=== PATIENT | female | born 1945 | race Caucasian/White ===

== ENCOUNTER 2025-03-18 14:10 | Outpatient (REF) | payer OTHER, SELFPAY ==
--- OUTSIDE RECORDS SUMMARY | 2025-03-18 14:16 | XMS_ITS | Encounter Summary ---
Author Organization [facility] Address [address] [place] [address] Care Team Providers Care Pumper [employer]ery Name Role Phone Mallika Massey DO Primary Care Provider Christina Trimble DPM Unavailable [phone] Christiano Wade DO Unavailable [phone] Mallika Massey DO Unavailable [phone] Reason for Visit * Reason Comments Med Refill Encounter Details Date Type Department Care Team (Late st Contact Info) Description 03/15/2025 Refill [facility] [address] [place] [address] Mallika Massey, DO [address] [place] [address] Thalassemia, unspecified type Social History Tobacco Use Types Packs/Day Years Used Date Smoking Tobacco: Never Smokeless Tobacco: Never Alcohol Use Standard Drinks/Week Comments Not Currently 0 (1 standard drink = 0.6 oz pur e alcohol) Pt does not drink alcohol AUDIT-C Answer Date Recorded Frequency of Alcohol Consumption Not on file 10/26/2023 Q2: How many drinks containi ng alcohol do you have on a typical day when you are drinking? Patient does not drink Frequency of Binge Drinking Not on file 10/17 PHQ-2 Answer Date Recorded Patient Health Questionnaire-2 Score 0 03/15/2024 Comments No Sex and Gender Information Value Date Recorded Sex Assigned at Not on file Legal Sex Female 6:53 PM EDT Gender Identity Not on file Sexual Orientation Not on file documented as of this encounter Miscellaneous Notes * Telephone Encounter - Yonatan Coelho MA - 03/15/2025 2:11 PM EDT Rx sent documented in this encounter Plan of Treatment Upcoming Encounters Date Type Department Care Team (Late st Contact Info) Description 03/21/2025 1:00 PM EDT Office Visit [facility] [address] [place] [address] Mallika Massey DO [address] [place] [address] documented as of this encounter Visit Diagnoses Diagnosis Thalassemia, unspecified type documented in this encounter Care Teams Pumper Brewery Relationship Specialty Start Date End Date Mallika Massey DO [address] [place] [address] PCP - General Internal Medicine 10/28/23 Mallika Massey DO [address] [place] [address] PCP - Devoted 01/15/25 Christina Trimble DPM [address] [place] [address] Consulting Physician Podiatry 10/28/23 Christiano Wade DO [address] [place] [address] Consulting Physician General Surgery 04/08/24 Eleanor Galarza MD Consulting Physician Ophthalmology 02/20/24 documented as of this encounter
--- OUTSIDE RECORDS SUMMARY | 2025-03-18 14:16 | XMS_ITS | Encounter Summary ---
Author Organization [facility] Address [address] [place] [address] Care Team Providers Care Solar Designer Name Role Phone Mallika Massey DO Primary Care Provider Christina Trimble DPM Unavailable [phone] Christiano Wade DO Unavailable [phone] Mallika Massey DO Unavailable [phone] Encounter Details Date Type Department Care Team (Late st Contact Info) Description 03/04/2025 Patient Outreach [facility] [address] [place] [id number] Katrina Ellis MA Social History Tobacco Use Types Packs/Day Years [...] on file documented as of this encounter Progress Notes * Katrina Ellis MA - 03/04/2025 10:04 AM EDT Chart reviewed. Called and spoke to АННА horton, who states overall patient is doing well. She reports no leg pain or swelling. Doing okay on xarelto and denies any bruising or bleeding. Denies further falls and is using walker for assistance. HH PT/PT and nursing is coming in once weekly. Admits to eating and staying hydrated. Shanae does note that pt sits inside watching TV in the dark all day and she has a hard time getting her out of the house. Shanae sets up her weekly medications and patient taking as prescribed. Denies needs or concerns today and will touch base next week for / documented in this encounter Plan of Treatment Upcoming Encounters Date Type Department Care Team (Late st Contact Info) Description 03/21/2025 1:00 PM EDT Office Visit [facility] [address] [place] [address] Mallika Massey DO [address] [place] [address] documented as of this encounter Visit Diagnoses Diagnosis Acute deep vein thrombosis (DVT) of right lower extremity, unspecified vein ([facility]/HCC)- Primary Fall, initial encounter documented in this encounter Care Teams Solar Designer Relationship Specialty Start Date End Date Mallika Massey DO [address] [place] [address] PCP - General Internal Medicine 10/28/23 Mallika Massey DO [address] [place] [address] PCP - Devoted 01/15/25 Christina Trimble DPM [address] [place] [address] Consulting Physician Podiatry 10/28/23 Christiano Wade DO [address] [place], [place] [id number] Consulting Physician General Surgery 04/08/24 Eleanor Galarza MD Consulting Physician Ophthalmology 02/20/24 documented as of this encounter
--- OUTSIDE RECORDS SUMMARY | 2025-03-18 14:16 | XMS_ITS | Clinical Summary ---
Author Organization [facility] Address [address] [place] [address] Care Team Providers Care Research [employer] Insights Executive Name Role Phone Presley Wu DO Primary Care Provider [phone] Allergies Active Allergy Reactions Criticality Noted Date Comments Morphine Hives 08/03/2022 Medications levothyroxine (SYNTHROID) 175 MCG tabletIndications: Postsurgical hypothyroidism Take 1 tablet by mouth Daily 90 tablet 1 2 Active simvastatin (ZOCOR) 40 MG tabletIndications: Mixed hyperlipidemia Take 1 tablet by mouth nightly 90 tablet 1 2 Active GAVILYTE-G 236 g solution TAKE 4000 ML BY MOUTH A ONE TIME DOSE 3 Active folic acid (FOLVITE) 1 MG tabletIndications: Type 2 diabetes mellitus without complication, without long-term current use of insulin (HCC) Take 1 tablet by mouth once daily 90 tablet 1 3 Active metFORMIN (GLUCOPHAGE) 1000 MG tabletIndications: Type 2 diabetes mellitus without complication, without long-term current use of insulin (HCC) TAKE 1 TABLET BY MOUTH TWICE DAILY WITH MEALS 180 tablet 1 3 Active metoprolol succinate (TOPROL XL) 25 MG extended release tabletIndications: Essential hypertension Take 1 tablet by mouth once daily 90 tablet 1 3 Active triamcinolone (KENALOG) 0.1 % creamIndications:P ruritic rash determined by examination,Irrita nt contact dermatitis, unspecified trigger Apply topically 2 times daily. 45 g 1 3 Active acetaminophen (TYLENOL) 500 MG tabletIndications: Chronic maxillary sinusitis Take 1-2 tablets PO QID PRN for pain 360 tablet 1 3 Active dapagliflozin (FARXIGA) 10 MG tabletIndications: Type 2 diabetes mellitus without complication, without long-term current use of insulin (HCC) Take 1 tablet by mouth every morning 30 tablet 5 3 Active Active Problems Problem Noted Date Diagnosed Date Essential hypertension 09/07/2022 Type 2 diabetes mellitus wit hout complication, without long-term current use of insulin 06/01/2022 Mixed hyperlipidemia 06/01/2022 Postsurgical hypothyroidism 06/01/2022 Social History Tobacco Use Types Packs/Day Years Used Date Smoking Tobacco: Never Smokeless Tobacco: Never Alcohol Use Standard Drinks/Week Comments Never 0 (1 standard drink = 0.6 oz pur e alcohol) AUDIT-C Answer Date Recorded Q1: How often do you have a drink containing alcohol? Never 08/03/2022 Q2: How many drinks containi ng alcohol do you have on a typical day when you are drinking? Patient does not drink Q3: How often do you have si x or more drinks on one occasion? Never 08/03/2022 Overall Financial Resource Strain (CARDIA) Answe r Date Recorded How hard is it for you to pa y for the very basics like food, housing, medical care, and heating? Not hard at all 04/29/2023 PHQ-2 Answer Date Recorded PHQ-9 Total Score 0 04/29/2023 Exercise Vital Sign Answer Date Recorde d On average, how many days pe r week do you engage in moderate to strenuous exercise (like a brisk walk)? 0 days 08/03/2022 On average, how many minutes do you engage in exercise at this level? 0 min 08/03/2022 Hunger Vital Sign Answer Date Recorded Within the past 12 months, y ou worried that your food would run out before you got the money to buy more. Never true 04/29/20 23 Within the past 12 months, t he food you bought just didn't last and you didn't have money to get more. Never true 04/29/2023 PRAPARE - Transportation Answer Date Re corded Lack of Transportation (Medical) Not on file 04/29/2023 In the past 12 months, has l ack of transportation kept you from meetings, work, or from getting things needed for daily living? No 04/29/2023 Housing Stability Vital Sign Answer Christo e Recorded Unable to Pay for Housing in the Last Year Not o n file 04/29/2023 Number of Places Lived in the Last Year Not on f ile 04/29/2023 In the last 12 months, was t here a time when you did not have a steady place to sleep or slept in a long term (including now)? No 04/29/2023 Food Insecurity Answer Date Recorded Within the past 12 months, y ou worried that your food would run out before you got the money to buy more. 1 04/29/2023 Within the past 12 months, t he food you bought just didn't last and you didn't have money to get more. 1 04/29/2023 Interpersonal Safety Domain Source: IP Abuse Scr eening Answer Date Recorded Read-Only, Retired: Physical Abuse Denies 03/17/2023 Read-Only, Retired: Verbal Abuse Denies 03/17/2023 Read-Only, Retired: Emotional abuse Denies 03/17/2023 Read-Only, Retired: Financial Abuse Denies 03/17/2023 Read-Only, Retired: Sexual abuse Denies 03/17/2023 Comments No Sex and Gender Information Value Date Recorded Sex Assigned at Not on file Legal Sex Female 10:53 AM EDT Gender Identity Not on file Sexual Orientation Not on file Last Filed Vital Signs Vital Sign Reading Time Taken Comments Blood Pressure 130/88 04/29/2023 11:11 AM EDT Pulse 100 04/29/2023 11:11 AM EDT Temperature 35.9 C (96.7 F) 03/17/2023 9:00 AM EDT Respiratory Rate 15 03/17/2023 9:45 AM EDT Oxygen Saturation 99% 04/29/2023 11:11 AM EDT Inhaled Oxygen Concentration - - Weight 118.8 kg (262 lb) 04/29/2023 11:11 AM EDT Height 157.5 cm (5' 2 ) 03/17/2023 7:06 AM EDT Body Mass Index 47.92 03/17/2023 7:06 AM EDT Plan of Treatment Health Maintenance Due Date Last Done Comments DTaP/Tdap/Td vaccine (1 - Tdap) 1966 Pneumococcal 50+ years Vaccine (1 of 2 - PCV) 1966 Shingles vaccine (1 of 2) 1997 DEXA (modify frequency per FRAX score) 2002 Respiratory Syncytial Virus (RSV) or age 60 yrs+ (1 - 1-dose 75+ series) 2022 GFR test (Diabetes, CKD 3-4, OR last GFR 15-59) 06/01/2023 06/01/2022 Lipids 06/01/2023 06/01/2022 Diabetic Alb to Cr ratio (uACR) test 06/08/2023 06/08/2022 Depression Screen 04/29/2024 04/29/2023 COVID-19 Vaccine ( - 2023-2 5 season) 2024 Annual Wellness Visit (Medicare Advantage) 10/17/2024 08/03/2022 Flu vaccine (Season Ended) 2025 Diabetic foot exam Discontinued 06/08/2022 Colonoscopy Discontinued 03/17/2023 Colorectal Cancer Screen Discontinued A1C test (Diabetic or Prediabetic) Discontinued 04/29/2023, 09/07/2022, 06/01/2022 FIT/FOBT: Average risk Discontinued Fecal-DNA (Cologuard): Average risk Discontinued Hepatitis A vaccine Aged Out No longe r eligible based on patient's age to complete this topic Hepatitis B vaccine Aged Out No longe r eligible based on patient's age to complete this topic Hepatitis C screen Discontinued Hib vaccine Aged Out No longer eligi ble based on patient's age to complete this topic Meningococcal (ACWY) vaccine Aged Out No longer eligible based on patient's age to complete this topic Meningococcal B vaccine Aged Out No l onger eligible based on patient's age to complete this topic Polio vaccine Aged Out No longer elig ible based on patient's age to complete this topic Sigmoidoscopy/CT colonography Discontinued Medical Devices Implanted Type Area Bottom Loader Device Identifier Shelf Expiration Date Model / Serial / Lot Knee Knee Bilateral: Knee Procedures Procedure Name Priority Date/Time Associated Diagnosis Comments POCT GLYCOSYLATED HEMOGLOBIN (HGB A1C) Routine 04/29/2023 11:10 AM EDT Type 2 diabetes mellitus without complication, without long-term current use of insulin (HCC) POC ALBUMIN/CREATININE RATIO Routine 06/08/2022 11:03 AM EDT Type 2 diabetes mellitus without complication, without long-term current use of insulin (HCC) COMPREHENSIVE METABOLIC PANEL Routine 06/01/2022 11:22 AM EDT Type 2 diabetes mellitus without complication, without long-term current use of insulin (HCC) LIPID PANEL Routine 06/01/2022 11:22 AM EDT Type 2 diabetes mellitus without complication, without long-term current use of insulin (HCC) from Last 3 Months or Most Recently Relevant to Health Maintenance Results * POCT glycosylated hemoglobin (Hb A1C) (04/29/2023 11:10 AM EDT) Hemoglobin A1C 8.1 % BLOOD SPECIMEN / Unknown 04/29/2023 11:10 AM EDT Presley Wu DO POINT OF CARE TEST ORDERABL ES Final Result * POCT microalbumin (06/08/2022 11:03 AM EDT) Albumin Urine 30 Creatinine Ur POCT 300 Albumin/Creatini ne Ratio 0.1 Urine 06/08/2022 11:0 3 AM EDT Presley Wu DO POINT OF CARE TEST ORDERABL ES Final Result * (ABNORMAL) Lipid Panel (06/01/2022 11:22 AM EDT) Cholesterol 282(H) <200 mg/dL 06/01/2022 11:22 AM EDT [facility] Comment: Cholesterol Guidelines: <200 Desirable 200-240 Borderline >240 Undesirable HDL 48 >40 mg/dL 06/01/2022 11:22 AM EDT [employer] Comment: HDL Guidelines: <40 Undesirable 40-59 Borderline >59 Desirable LDL Cholesterol 154(H) 0 - 130 mg/dL 06/01/2022 11:22 AM EDT [employer] Comment: LDL Guidelines: <100 Desirable 100-129 Near to/above Desirable 130-159 Borderline >159 Undesirable Direct (measured) LDL and calculated LDL are not interchangeable tests. Chol/HDL Ratio 5.9(H) <5 06/01/2022 11:22 AM EDT [employer] Comment: Triglycerides 400(H) <150 mg/dL 06/01/2022 11:22 AM EDT [employer] Comment: Triglyceride Guidelines: <150 Desirable 150-199 Borderline 200-499 High >499 Very high Based on AHA Guidelines for fasting triglyceride, July 2012. BLOOD SPECIMEN / Unknown 06/01/2022 11:22 AM EDT 06/01/2022 11:23 AM EDT Presley Wu DO CHEMISTRY ORDERABLES Final Result [facility] [address] [place] [address], [facility] [phone] [facility] [address] [id number], [facility] [phone] * (ABNORMAL) Comprehensive Metabolic Panel (06/01/2022 11:22 AM EDT) Glucose 138(H) 70 - 99 mg/dL 06/01/2022 11:22 AM EDT [facility] BUN 10 8 - 23 mg/dL 06/01/2022 11:22 AM EDT [facility] Creatinine 0.67 0.50 - 0.90 mg/dL 06/01/2022 11:22 AM EDT [facility] BUN/Creatinine Ratio 15 9 - 20 06/01/2022 11:22 AM EDT [facility] Calcium 9.4 8.6 - 10.4 mg/dL 06/01/2022 11:22 AM EDT [facility] Sodium 136 135 - 144 mmol/L 06/01/2022 11:22 AM EDT [facility] Potassium 4.6 3.7 - 5.3 mmol/L 06/01/2022 11:22 AM EDT [facility] Chloride 97(L) 98 - 107 mmol/L 06/01/2022 11:22 AM EDT [facility] [facility] CO2 29 20 - 31 mmol/L 06/01/2022 11:22 AM EDT [facility] Anion Gap 10 9 - 17 mmol/L 06/01/2022 11:22 AM EDT [facility] Alkaline Phosphatase 70 35 - 104 U/L 06/01/2022 11:22 AM EDT [facility] ALT 21 5 - 33 U/L 06/01/2022 11:22 AM EDT [facility] AST 23 <32 U/L 06/01/2022 11:22 AM EDT [facility] Total Bilirubin 0.51 0.30 - 1.20 mg/dL 06/01/2022 11:22 AM EDT [facility] Total Protein 7.4 6.4 - 8.3 g/dL 06/01[facility]2022 [facility] Albumin 4.3 3.5 - 5.2 g/dL 06/01/2022 11:22 AM EDT [facility] [facility] GFR Non- >60 >60 mL/min 06/01/2022 11:22 AM EDT [facility] GFR >60 >60 mL/min 06/01/2022 11:22 AM T [facility] GFR Comment 06/01/2022 11:22 AM [facility] Comment: Average GFR for 70 or more years old: 75 mL/min/1.73sq m Chronic Kidney Disease: <60 mL/min/1.73sq m Kidney failure: <15 mL/min/1.73sq m eGFR calculated using average adult body mass. Additional eGFR calculator available at: http://www.[employer].com/multiple_crcl_2012.htm BLOOD SPECIMEN / Unknown 06/01/2022 11:22 AM EDT 06/01/2022 11:23 AM EDT Presley Wu DO CHEMISTRY ORDERABLES Final Result [facility] [facility] [address] [place] [address], [facility] [phone] from Last 3 Months or Most Recently Relevant to Health Maintenance Insurance [facility] MEDICARE Advance Directives Healthcare Agents on File Name Relationship Healthcare Agent Relationshi p Communication Whitney Lui Other Primary Decision Maker Care Teams [employer] Executive Relationship Specialty Start Date End Date Presley Wu DO [address] [place] [id number] PCP - General Family Medicine 06/01/22
--- OUTSIDE RECORDS SUMMARY | 2025-03-18 14:16 | XMS_ITS | Encounter Summary ---
Author Organization [facility] Address [address] [place] [address] Care Team Providers Care Salvager Name Role Phone Mallika Massey DO Unavailable [phone] Mallika Massey DO Primary Care Provider Christina Trimble DPM Unavailable [phone] Christiano Wade DO Unavailable [phone] Mallika Massey DO Unavailable [phone] Encounter Details Date Type Department Care Team (Late st Contact Info) Description 03/15/2024 Orders Only [facility] [address] [place] [id number] A, Unknown Practice [address] [place] [id number] Social History Tobacco Use Types Packs/Day Years [...] on file documented as of this encounter Functional Status * Over the past 2 weeks, how often have you been bothered by any of the following problems? Question Answer Date of Assessment Author Little interest or pleasure in doing things Not at all 03/15/2024 9:00 AM EDT [facility] Mc[facility] N Feeling down, depressed, or hopeless Not at all 03/15/2024 9:00 AM EDT [facility] Mcnamara [facility] N Patient Health Questionnaire -2 Score 0 03/15/2024 9:00 AM EDT Sydnee Mcnamara [facility] N documented as of this encounter Plan of Treatment Upcoming Encounters Date Type Department Care Team (Late st Contact Info) Description 03/21/2025 1:00 PM EDT Office Visit [facility] [address] [place] [address] Mallika Massey DO [address] [place] [address] documented as of this encounter Procedures Procedure Name Priority Date/Time Associated Diagnosis Comments DIABETES EYE EXAM Routine 03/15/2024 2:08 PM EDT documented in this encounter Results * Diabetes Eye Exam (03/15/2024 2:08 PM EDT) us Unknown Practice [facility] MAINTENANCE Final Resu lt documented in this encounter Visit Diagnoses Not on filedocumented in this encounter Care Teams Salvager Relationship Specialty Start Date End Date Mallika Massey DO [address] [place] [address] PCP - Devoted 10/17/23 10/16/24 Mallika Massey DO [address] [place] [address] PCP - General Internal Medicine 10/28/23 Mallika Massey DO [address] [place] [address] PCP - Devoted 01/15/25 Christina Trimble DPM [address] [facility] [address] [place] [address] Consulting Physician Podiatry 10/28/23 Christiano Wade DO [address] [place] [address] [address] [place] [address] Consulting Physician General Surgery 04/08/24 Eleanor Galarza MD Consulting Physician Ophthalmology 02/20/24 documented as of this encounter
--- OUTSIDE RECORDS SUMMARY | 2025-03-18 14:16 | XMS_ITS | Encounter Summary ---
Author Organization [facility] Address [address] [place] [address] Care Team Providers Care Critical Care Registered Nurse Name Role Phone Mallika Massey DO Unavailable [phone] Mallika Massey DO Primary Care Provider Christina Trimble DPM Unavailable [phone] Christiano Wade DO Unavailable [phone] Mallika Massey DO Unavailable [phone] Encounter Details Date Type Department Care Team (Late st Contact Info) Description 03/06/2024 External Result Encounter [facility] Unsolicited Christiano Wade, DO [address] [place] [address] Social History Tobacco Use Types Packs/Day Years [...] of Binge Drinking Not on file 10/17 Comments No Sex and Gender Information Value Date Recorded Sex Assigned at Not on file Legal Sex Female 6:53 PM EDT Gender Identity Not on file Sexual Orientation Not on file documented as of this encounter Plan of Treatment Upcoming Encounters Date Type Department Care Team (Late st Contact Info) Description 03/21/2025 1:00 PM EDT Office Visit [facility] [address] [place] [id number] Mallika Massey, [address] [place] [address] documented as of this encounter Procedures Procedure Name Priority Date/Time Associated Diagnosis Comments BI US GUIDED BREAST LOCALIZATION AND BIOPSY RIGHT 03/06/2024 1:43 PM EDT documented in this encounter Results * Right US-guided breast localization and biopsy (03/06/2024 1:43 PM EDT) Anatomical Region Laterality Modality Breast Right Ultrasound 03/06/2024 1:43 PM EDT Impressions 03/06/2024 1:50 PM EDT STATUS POST ULTRASOUND GUIDED VACUUM-ASSISTED CORE BIOPSIES OF THE RIGHT BREAST. RESULT CODE: NL Impression dictated by: Donald Washburn M.D.03/06/2024 1:47 PM Dictation Location: [facility] Transcribed By: [facility] 03/06/24 1347 Dictated By: Donald Washubrn II, MD 03/06/24 1343 Signed By: <Electronically signed by Donald Washburn II, MD in [place]> 03/06/24 1347 Narrative 03/06/2024 1:50 PM EDT [facility] Main [address] [address] Mammography Report Signed with Addenda Patient: Bessie Espinosa MR#: [id number] 36 : 1945 Acct:[id number] Age/Sex: 78 / F ADM Date: 03/06/24 Loc: [facility] Room: Type: [facility] Attending Dr: Christiano Wade DO Copies to: DO Mallika Leiva DO Ordering Provider: Christiano Wade DO Date of Service: 03/06/24 US/US breast ndl core biopsy RT: . ([id number]) MM/MM post biopsy RT w/CAD: RT BX WITH CLIP ADDENDUM 1 Final pathology: Invasive lobular carcinoma Estrogen receptor: Positive Progesterone receptor: Positive HER-2: Pending Recommendation: Surgical consultation is recommended. Impression dictated by: Donald Washburn M.D.03/09/2024 8:03 AM Dictation Location: [place] [address] Addendum Dictated By: Donald Washburn II, MD Addendum Signed By: <Electronically signed by Donald Washburn II, MD in [place]> 03/09/[address]802 Addendum Cosigned By: DD/ TD/TT: 03/09/24 ULTRASOUND GUIDED VACUUM-ASSISTED HOLOGIC ATEC SYSTEM CORE BIOPSIES OF THE RIGHT BREAST: CLINICAL DATA: Right breast mass PROCEDURE: The risks, benefits and alternatives to an ultrasound guided vacuum-assisted Hologic ATEC system core biopsy procedure were discussed with the patient and written informed consent was obtained. Ultrasonographic survey of the upper aspect of the right breast was performed by electro mechanical technologist as well as myself. There is a hypoechoic irregularly marginated mass with posterior acoustic shadowing at the 1:00 position 7 to 8 cm from the nipple similar to the prior exams. This appears to be 1 lesion in total previous reported as 2 adjacent lesions on outside ultrasound. The patient's overlying skin was anesthetized with 1% lidocaine. The deeper soft tissues up to and around the lesion were anesthetized with lidocaine mixed with epinephrine. Following this, multiple core biopsies of the right breast lesion at the 1:00 position were performed using a 12-gauge Sqoot vacuum-assisted core biopsy needle under ultrasound guidance. Multiple core biopsy specimens were obtained. A metallic post biopsy marker was then placed. Post procedure mammograms were performed. The patient tolerated the procedure well without immediate postprocedural complication. POSTPROCEDURE MAMMOGRAMS: Craniocaudal and mediolateral oblique views of the right breast were performed using low dose digital technique and compared to the previous ultrasound and mammograms dated 01/26/2024 and 02/28/2024. A small metallic marking clip is demonstrated within the upper aspect of the right breast where the ultrasound guided core biopsy was performed. MM/MM post biopsy RT w/CAD Procedure Note Radiology, Radiologist, - 03/09/2024 [facility] Main [place] [address] [place] [address] Mammography Report Signed with Addenda Patient: Bessie Espinosa KMR#: [id number] 36 : 1945cct:[id number] Age/Sex: 78 / FADM Date: 03/06/24 Loc: [facility] Room:Type: [facility] Attending Dr: Christiano Wade DO Copies to: DO Mallika Leiva DO Ordering Provider: Christiano Wade DO Date of Service: 03/06/24 US/US breast ndl core biopsy RT: . ([id number]) MM/MM post biopsy RT w/CAD: RT BX WITH CLIP ADDENDUM 1 Final pathology: Invasive lobular carcinoma Estrogen receptor: Positive Progesterone receptor: Positive HER-2: Pending Recommendation: Surgical consultation is recommended. Impression dictated by: Donald Washburn M.D.03/09/2024 8:03 AM Dictation Location: [place] [address] Addendum Dictated By: Donald Washburn II, MD Addendum Signed By: <Electronically signed by Donald Cannon II, MD in [place]> 03/09/24 08 Addendum Cosigned By: DD/ TD/TT: 03/09/24 ULTRASOUND GUIDED VACUUM-ASSISTED HOLOGIC ATEC SYSTEM CORE BIOPSIES OF THERIGHT BREAST: CLINICAL DATA: Right breast mass PROCEDURE: The risks, benefits and alternatives to an ultrasound guidedvacuum-assisted Hologic ATEC system core biopsy procedure were discussed with the patient and writteninformed consent was obtained. Ultrasonographic survey of the upper aspect of the right breast wasperformed by electro mechanical technologist as well as myself. There is a hypoechoic irregularlymarginated mass with posterior acoustic shadowing at the 1:00 position 7 to 8 cm from the nipple similarto the prior exams. This appears to be 1 lesion in total previous reported as 2 adjacent lesions onoutside ultrasound. The patient's overlying skin was anesthetized with 1% lidocaine. Thedeeper soft tissues up to and around the lesion were anesthetized with lidocaine mixed with epinephrine.Following this, multiple core biopsies of the right breast lesion at the 1:00 position wereperformed using a 12-gauge Sqoot vacuum-assisted core biopsy needle under ultrasound guidance. Multiplecore biopsy specimens were obtained. A metallic post biopsy marker was then placed. Post proceduremammograms were performed. The patient tolerated the procedure well without immediate postproceduralcomplication. POSTPROCEDURE MAMMOGRAMS: Craniocaudal and mediolateral oblique views ofthe right breast were performed using low dose digital technique and compared to the previousultrasound and mammograms dated 01/26/2024 and 02/28/2024. A small metallic marking clip isdemonstrated within the upper aspect of the right breast where the ultrasound guided core biopsy was performed. MM/MM post biopsy RT w/CAD IMPRESSION: STATUS POST ULTRASOUND GUIDED VACUUM-ASSISTED CORE BIOPSIES OF THE RIGHTBREAST. RESULT CODE: NL Impression dictated by: Donald Washburn M.D.03/06/2024 1:47 PM Dictation Location: [facility] Transcribed By: [facility] 03/06/24 1347 Dictated By: Donald Washburn II, MD 03/06/24 1343 Signed By: <Electronically signed by Donald Washburn II, MD inOV> 03/06/24 1347 us Christiano Wade DO IMG US PROCEDURES Edited Result - Final documented in this encounter Visit Diagnoses Not on filedocumented in this encounter Care Teams Critical Care Registered Nurse Relationship Specialty Start Date End Date Mallika Massey DO [address] [place] [address] PCP - [facility] 10/17/23 10/16/24 Mallika Massey DO [address] [place] [address] PCP - General Internal Medicine 10/28/23 Mallika Massey DO [address] [place] [address] PCP - [facility] 01/15/25 Christina Trimble DPM [address] [place] [address] Consulting Physician Podiatry 10/28/23 Christiano Wade DO [address] [place] [address] Consulting Physician General Surgery 04/08/24 Eleanor Galarza MD Consulting Physician Ophthalmology 02/20/24 documented as of this encounter
--- OUTSIDE RECORDS SUMMARY | 2025-03-18 14:16 | XMS_ITS | Clinical Summary ---
Author Organization [facility] Address [address] [place] [address] Care Team Providers Care Maintenance Job Titles Name Role Phone Mallika Massey DO Primary Care Provider Christina Trimble DPM Unavailable [phone] Christiano Wade DO Unavailable [phone] Mallika Massey DO Unavailable [phone] Allergies Active Allergy Reactions Criticality Noted Date Comments Metformin Diarrhea Medium 03/15/2024 Morphine Hives,Other,Rash Low 05/31/2018 Pt reports blotchy skin Other Reaction(s): Rash Medications acetaminophen (Tylenol) 500 MG tablet Take 1-2 tablets PO QID PRN for pain 04/29/20 23 Active metoprolol succinate XL (Toprol-XL) 25 MG 24 hr tabletIndication s:Essential hypertension (CMS/HCC) Take 1 tablet (25 mg) by mouth Daily 90 tablet 3 03/15/20 24 Active simvastatin (Zocor) 40 MG tabletIndication s:Hyperlipidemia , mixed (CMS/HCC) Take 1 tablet (40 mg) by mouth at bedtime 90 tablet 3 03/15/20 24 Active letrozole (Femara) 2.5 MG chemo tablet TAKE 1 TABLET BY MOUTH EVERY DAY STARTING AFTER RADIATION TREATMENT IS DONE 07/05/20 24 Active cholecalciferol (Vitamin D-3) 75 MCG (3000 UT) tablet Take 2,000 Units by mouth Daily Active Calcium Carb-Cholecalcif chilo (CALCIUM 1000 + D PO) Take 600 mg by mouth Daily Active empagliflozin (Jardiance) 10 MGIndications:Ty pe 2 diabetes mellitus with neurological manifestation (CMS/HCC) Take 1 tablet (10 mg) by mouth Daily 90 tablet 3 08/21/20 24 025 Active [facility] Vitamin B12 1000 MCG tablet Take 1,000 mcg by mouth Daily 02/23/20 25 Active levothyroxine (Synthroid, Levoxyl) 50 MCG tablet Take 50 mcg by mouth in the morning. Take before meals. 02/23/20 25 Active pantoprazole (ProtoNix) 40 MG EC tablet Take 40 mg by mouth in the morning. Take before meals. 02/23/20 25 Active Xarelto 20 MG tablet Take 20 mg by mouth in the evening. Take with meals 02/23/20 25 Active Ozempic, 0.25 or 0.5 MG/DOSE, 2 MG/3ML solution pen-injector Inject 0.25 mg as directed every 7 (seven) days 02/23/20 25 Active folic acid (Folvite) 1 MG tabletIndication s:Thalassemia, unspecified type TAKE 1 TABLET BY MOUTH EVERY DAY 90 tablet 3 03/15/20 25 Active folic acid (Folvite) 1 MG tabletIndication s:Thalassemia, unspecified type Take 1 tablet (1 mg) by mouth Daily 90 tablet 3 03/15/20 24 025 Discontinued ibuprofen 600 MG tablet TAKE 1 TABLET EVERY 4 TO 6 HOURS NEEDED FOR PAIN FOR 1 WEEK MAX 4 TABS/24HRS 04/10/20 24 025 Discontinued(O ther) Active Problems Problem Noted Date Diagnosed Date Acute deep vein thrombosis ( DVT) of tibial vein of right lower extremity 02/21/2025 Overview (02/25/2025): Admitted 02/21/2025 after a fall. Found to have DVT and started on Xarelto Malignant neoplasm of upper- inner quadrant of right breast in female, estrogen receptor positive 03/21/2024 Overview (08/21/2024): Malignant neoplasm of upper-inner quadrant of right breast in female, estrogen receptor positive She had lumpectomy with Dr Wade March 2024. 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 (Ie GLP1 or SGLT2) Due to preference for an oral option, I recommend starting Jardiance at this time. Asymptomatic varicose veins of both lower extrem ities 03/21/2024 Venous (peripheral) insufficiency 03/21/2024 Essential hypertension 10/28/2023 Overview (11/08/2023): Prescribed metoprolol XL Assessment & Plan (08/21/2024 3:32 PM EST): Her BP is doing fine on current rx. Based on review of patient's medications and current medical status; continuation of medications most appropriate. Compliance with medications and/or management recommendations encouraged. Will continue to monitor Assessment & Plan (04/08/2024 3:50 PM EDT): BP is doing fine on current rx. Based on review of patient's medications and current medical status; continuation of medications most appropriate. Compliance with medications and/or management recommendations encouraged. Monitor Assessment & Plan (11/08/2023 10:17 PM EST): -Reinforced importance of lifestyle modifications (healthy diet choices, regular exercise and weight management) for detention control of blood pressure. Limit salt. Follow the DASH diet. Advised of increased risk of complications ( for example: stroke, heart failure, heart attack, kidney damage or ) when BP not adequately controlled. BP goals reviewed and specific recommendations to achieve the goal/maintain goal BP discussed Thalassemia 10/28/2023 Overview (11/08/2023): She is taking folic acid Mixed hyperlipidemia 06/01/2022 Overview (04/08/2024): Prescribed simvastatin Assessment & Plan (08/21/2024 3:33 PM EST): Will plan to have labs prior to next visit (Reminder created). -Reinforced importance of dietary modification, regular cardiovascular activity and compliance with any prescribed medication for detention management/control of lipids. High cholesterol (especially LDL) is associated with an elevated risk of cardiovascular disease. This includes coronary artery disease. stroke and peripheral vascular disease. High cholesterol has also been linked to diabetes and high blood pressure risks. By appropriately treating LDL, these risks can be reduced. Assessment & Plan (04/08/2024 3:50 PM EDT): -Reinforced importance of dietary modification, regular cardiovascular activity and compliance with any prescribed medication for detention management/control of lipids. High cholesterol (especially LDL) is associated with an elevated risk of cardiovascular disease. This includes coronary artery disease. stroke and peripheral vascular disease. High cholesterol has also been linked to diabetes and high blood pressure risks. By appropriately treating LDL, these risks can be reduced. Assessment & Plan (11/08/2023 10:18 PM EST): Will get lipid panel; but based on dx of DM, she should be on statin therapy Postsurgical hypothyroidism 06/01/2022 Overview (02/25/2025): 08/2024: Not currently on rx 02/2025- Levothyroxine 50 mcg started during hospitalization (for a fall) Assessment & Plan (11/08/2023 10:19 PM EST): Will get TFTs to assess current status and determine if she needs to resume rx Class 3 obesity Assessment & Plan (08/21/2024 3:34 PM EST): -Obesity is a term that means you have a body mass index (BMI) of 30 or higher. Obesity increases your risk of many conditions. Of major concern is that your risk of heart disease is increased. Of particular concern is that a [place] Heart Study analysis concluded that, after other cardiovascular risk factors are controlled, obese individuals have double the risk of new onset heart failure compared with normal weight subjects The risks for hypertension, stroke, diabetes, some cancers (including colon, postmenopausal breast cancer, kidney and esophageal), gallbladder disease, osteoarthritis, gout and breathing problems, such as sleep apnea are increased. I recommend you work on increasing physical activity and diet modifications to achieve goal BMI (less than 30 and preferably less than 25) in order to reduce risk of obesity-related complications. Specifically advised that weight loss if going to start in the kitchen more so than at the gym . While not everyone who is obese will develop one of the above mentioned diseases, the RISK is increased. -Losing a small amount of weight can reduce your chances of developing heart disease or a stroke. Losing even more weight has been shown to lower the risk even more. Assessment & Plan (04/08/2024 3:54 PM EDT): -Obesity is a term that means you have a body mass index (BMI) of 30 or higher. Obesity increases your risk of many conditions. Of major concern is that your risk of heart disease is increased. Of particular concern is that a [place] Heart Study analysis concluded that, after other cardiovascular risk factors are controlled, obese individuals have double the risk of new onset heart failure compared with normal weight subjects The risks for hypertension, stroke, diabetes, some cancers (including colon, postmenopausal breast cancer, kidney and esophageal), gallbladder disease, osteoarthritis, gout and breathing problems, such as sleep apnea are increased. I recommend you work on increasing physical activity and diet modifications to achieve goal BMI (less than 30 and preferably less than 25) in order to reduce risk of obesity-related complications. Specifically advised that weight loss if going to start in the kitchen more so than at the gym . While not everyone who is obese will develop one of the above mentioned diseases, the RISK is increased. -Losing a small amount of weight can reduce your chances of developing heart disease or a stroke. Losing even more weight has been shown to lower the risk even more. Assessment & Plan (11/08/2023 10:19 PM EST): -Obesity is a term that means you have a body mass index (BMI) of 30 or higher. Obesity increases your risk of many conditions. Of major concern is that your risk of heart disease is increased. Of particular concern is that a [place] Heart Study analysis concluded that, after other cardiovascular risk factors are controlled, obese individuals have double the risk of new onset heart failure compared with normal weight subjects The risks for hypertension, stroke, diabetes, some cancers (including colon, postmenopausal breast cancer, kidney and esophageal), gallbladder disease, osteoarthritis, gout and breathing problems, such as sleep apnea are increased. I recommend you work on increasing physical activity and diet modifications to achieve goal BMI (less than 30 and preferably less than 25) in order to reduce risk of obesity-related complications. Specifically advised that weight loss if going to start in the kitchen more so than at the gym . While not everyone who is obese will develop one of the above mentioned diseases, the RISK is increased. -Losing a small amount of weight can reduce your chances of developing heart disease or a stroke. Losing even more weight has been shown to lower the risk even more. Resolved Problems Problem Noted Date Diagnosed Date Resolved Date Type 2 diabetes mellitus wit hout complication, without long-term current use of insulin 06/01/2022 04/08/2024 Overview (03/21/2024): Prescribed metformin 1000 mg BID Encounters Date Type Department Care Team Description 03/15/2025 Refill [facility] [address] [place] [phone] Mallika Massey, Thalassemia, unspecified type 03/04/2025 Patient Outreach [facility] [address] [place] [phone] Katrina Ellis MA 02/27/2025 2:00 PM EDT Office Visit [facility] [address] [place] [phone] Lotus Kaur, CONCHE OPERATOR Hospital discharge follow-up (Primary Dx); Status post fall; Acute deep vein thrombosis (DVT) of tibial vein of right lower extremity (CMS/HCC); Acute cystitis with hematuria 02/27/2025 Travel 02/25/2025 Patient Outreach [facility] [address] [place] [address] Yeimi Dahl LPN from Last 3 Months Immunizations Immunization Administration Dates Next Due Influenza, High Dose Seasonal, Preservative Free 10/08/2019 Pneumococcal Conjugate PCV 13 01/05/2019 Family History Medical History Relation Name Comments No Known Problems Daughter Healthjy Hyperlipidemia Father Hypertension Father Stroke Father Diabetes Mother Heart disease Mother Stroke Mother Breast cancer Other No Known Problems Son Healthy Colon cancer Neg Hx Ovarian cancer Neg Hx Relation Name Status Comments Brother 1 Brother Daughter 2 Daughters Father Alive Mother Other Paternal 1st Co usin Son 1 Son Social History Tobacco Use Types Packs/Day Years Used Date Smoking Tobacco: Never Smokeless Tobacco: Never Tobacco Cessation:Counseling Given: No Alcohol Use Standard Drinks/Week Comments Not Currently [...] Sign Reading Time Taken Comments Blood Pressure 124/72 03/12/2025 1:53 PM EDT Pulse 80 03/12/2025 1:53 PM EDT Temperature - - Respiratory Rate 16 03/12/2025 1:53 PM EDT Oxygen Saturation 96% 03/12/2025 1:53 PM EDT Inhaled Oxygen Concentration - - Weight 118 kg (260 lb) 08/21/2024 1:43 PM EST Height 154.9 cm (5' 1 ) 08/21/2024 1:43 PM EST Body Mass Index 49.13 08/21/2024 1:43 PM EST Plan of Treatment Upcoming Encounters Date Type Department Care Team (Late st Contact Info) Description 03/21/2025 1:00 PM EDT Office Visit [facility] [address] [place] [phone] Mallika Massey DO [address] [place] [address] Health Maintenance Due Date Last Done Comments Diabetes: Retinopathy Screening 1955 Pneumococcal Vaccine: 65+ Ye ars (2 of 2 - PPSV23) 03/02/2019 01/05/2019 Medicare Annual Wellness (AWV) 08/03/2023 08/03/2022 Diabetes: Urine Protein Screening 10/28/2024 024, 06/08/2022 Diabetes: Hemoglobin A1C 11/21/2024 024, 03/15/2024, 10/28/2023 Influenza Vaccine (Season Ended) 2025 10/08/20 19 Procedures Procedure Name Priority Date/Time Associated Diagnosis Comments POCT GLYCOSYLATED HEMOGLOBIN (HGB A1C) Routine 08/21/2024 1:58 PM EST Type 2 diabetes mellitus with neurological manifestation (CMS/HCC) MICROALBUMIN / CREATININE URINE RATIO Routine 10/28/2023 11:35 AM EST Essential hypertension (CMS/HCC) from Last 3 Months or Most Recently Relevant to Health Maintenance Results * POCT glycosylated hemoglobin (Hb A1C) docked device (08/21/2024 1:58 PM EST) Hemoglobin A1C 7.4 Blood Venous blood specimen / Unknown 08/21/2024 1:58 PM EST Mallika Massey DO POINT OF CARE TEST ENTE R/EDIT ORDERABLES Final Result * Microalbumin / creatinine urine ratio (10/28/2023 11:35 AM EST) CREATININE, RANDOM URINE 43 20 - 275 mg/dL [facility] ALBUMIN, URINE 0.9 See Note: mg/dL [facility] Comment: Reference Range: Reference Range Not established ALBUMIN/CREATININE RATIO, RANDOM URINE 21 <30 mcg/mg creat [facility] Comment: The ADA defines abnormalities in albumin excretion as follows: Albuminuria Category Result (mcg/mg creatinine) Normal to Mildly increased <30 Moderately increased 30-299 Severely increased > OR = 300 The ADA recommends that at least two of three specimens collected within a 3-6 month period be abnormal before considering a patient to be within a diagnostic category. Urine Urine specimen obtained by clean catch procedure / Unknown 10/28/2023 11:35 AM EST 10/28/2023 11:36 AM EST Narrative [facility] - 10/31/2023 12:11 PM EST FASTING:YES FASTING: YES Resulting Agency Comment Performing Organization Information Site ID: [id number] Name: [facility] Address: [address] [place] [address], [address] [place] [id number] Director: Travon Lawson MD Mallika Massey DO LAB URINE ORDERABLES Fi nal Result [facility] from Last 3 Months or Most Recently Relevant to Health Maintenance Insurance [employer] Advance Directives * Full Code (Latest Code Status on File) Date Activated Date Inactivated Comments 03/15/2024 10:07 AM Care Teams Maintenance Job Titles Relationship Specialty Start Date End Date Mallika Massey DO [address] [facility] [address] [place] [address] PCP - General Internal Medicine 10/28/23 Mallika Massey DO [address] [facility] [address] [place] [address] PCP - Devoted 01/15/25 Christina Trimble DPM [address] [facility] [address] [place] [address] Consulting Physician Podiatry 10/28/23 Christiano Wade DO [address] [place] [address] [address] [place] [address] Consulting Physician General Surgery 04/08/24 Eleanor Galarza MD Consulting Physician Ophthalmology 02/20/24
--- OUTSIDE RECORDS SUMMARY | 2025-03-18 14:17 | XMS_ITS ---
Author Organization [facility] Address [address] [place] [address] Care Team Providers Care Pharmacy Informatics Specialist Name Role Phone Mallika Massey DO Primary Care Provider Christina Trimble DPM Unavailable [phone] Christiano Wade DO Unavailable [phone] Mallika Massey DO Unavailable [phone] 30 Day Monitoring Program Status:Enrolled (Active) Start date:02/25/2025 Enrollment date:02/25/2025 Enrollment reason:Identified using hospital discharge data Case Team Name Relationship Phone Katrina Ellis MA(Responsible Staff) [phone] Continued Care and Services Coordination
--- OUTSIDE RECORDS SUMMARY | 2025-03-18 14:17 | XMS_ITS | Clinical Summary ---
Author Organization [employer] Address [id number] [address] [place] [address] Care Team Providers Care Records Custodian Name Role Phone Whitney Osorio Joseph HANCOCK Primary Care Provider Allergies Active Allergy Reactions Criticality Noted Date Comments Morphine Rash Low 05/11/2021 Medications simvastatin (ZOCOR) 40 mg tablet Take 40 mg by mouth nightly. Active folic acid (FOLVITE) 1 mg tablet Take 1 mg by mouth daily. Active levothyroxine (SYNTHROID, LEVOTHROID) 175 MCG tablet Take 175 mcg by mouth daily. Active Social History Tobacco Use Types Packs/Day Years Used Date Smoking Tobacco: Never Smokeless Tobacco: Never Alcohol Use Standard Drinks/Week Comments Never 0 (1 standard drink = 0.6 oz pur e alcohol) Childcare Answer Date Recorded Childcare Unknown 03/27/2019 Employment Answer Date Recorded Employment Unknown 03/27/2019 Comments Unknown Sex and Gender Information Value Date Recorded Sex Assigned at Not on file Legal Sex Female 6:14 PM EDT Gender Identity Not on file Sexual Orientation Not on file Last Filed Vital Signs Vital Sign Reading Time Taken Comments Blood Pressure 141/76 05/11/2021 10:45 PM EDT Pulse 104 05/11/2021 9:50 PM EDT Temperature 36.4 C (97.5 F) 05/11/2021 9:50 PM EDT Respiratory Rate - - Oxygen Saturation 99% 05/11/2021 10:45 PM EDT Inhaled Oxygen Concentration - - Weight 122.9 kg (271 lb) 05/11/2021 9:50 PM EDT Height 157.5 cm (5' 2 ) 05/11/2021 9:50 PM EDT Body Mass Index 49.57 05/11/2021 9:50 PM EDT Plan of Treatment Health Maintenance Due Date Last Done Comments Depression Screening 1957 Tobacco Screening 1957 DTaP,Tdap and Td Vaccines (1 - Tdap) 1966 Zoster (Shingles) Vaccine (1 of 2) 1997 Fall Risk Screening 2012 Influenza Vaccine 06/17/2025 10/08/2019 Medical Devices Not on file Insurance MEDICARE Care Teams Records Custodian Relationship Specialty Start Date End Date Whitney Osorio DNP [address] [place] [address] PCP - General Nurse Practitioner 05/11/21
--- OUTSIDE RECORDS SUMMARY | 2025-03-18 14:17 | XMS_ITS | Encounter Summary ---
Author Organization [facility] Address [address] [place] [address] Care Team Providers Care Facial Operator Name Role Phone Mallika Massey DO Unavailable [phone] Mallika Massey DO Primary Care Provider Christina Trimble DPM Unavailable [phone] Christiano Wade DO Unavailable [phone] Mallika Massey DO Unavailable [phone] Encounter Details Date Type Department Care Team (Late st Contact Info) Description 04/10/2024 External Result Encounter [facility] External Department Unsolicited Christiano Wade, DO [address] [place] [address] Social History Tobacco Use Types Packs/Day Years [...] IM [address] [place] [address] Mallika Massey, [address] [place] [address] documented as of this encounter Procedures Procedure Name Priority Date/Time Associated Diagnosis Comments BI MAMMOGRAM DIAGNOSTIC RIGHT 04/10/2024 2:14 PM EDT documented in this encounter Results * Right diagnostic mammogram (04/10/2024 2:14 PM EDT) Anatomical Region Laterality Modality Breast Right Mammography 04/10/2024 2:14 PM EDT Impressions 04/10/2024 2:18 PM EDT Resection of the radiation seed. Impression dictated by: Moise Rossi M.D.04/10/2024 2:15 PM Dictation Location: [facility]-- Transcribed By: [facility] 04/10/24 1415 Dictated By: Moise Rossi DO 04/10/24 1414 Signed By: <Electronically signed by Moise Rossi DO in OV> 04/10/24 1415 Narrative 04/10/2024 2:18 PM EDT [facility] Main [address] [address] Mammography Report Signed Patient: Bessie Espinosa MR#: [id number] [birth year] : 1945 Acct:[id number] Age/Sex: 78 / F ADM Date: 04/10/24 Loc: [place] Room: Type: [facility] Attending Dr: Christiano Wade DO Copies to: DO Mallika Leiva DO Ordering Provider: Christiano Wade DO Date of Service: 04/10/24 MM/MM surgical specimen RT: RT BREAST SPECIMEN IN OR WITH RADIOACTIVE SEED Fluoroscopic assessment of right lumpectomy surgical specimen HISTORY: Right lumpectomy. Right breast cancer 1 Image The radiation seed identified within the surgical specimen. MM/MM surgical specimen RT Procedure Note Radiology, Radiologist, - 04/10/2024 [facility] Main [place] [address] [place] [id number] Mammography Report Signed Patient: Bessie Espinosa KMR#: [id number] 36 : 1945cct:[id number] Age/Sex: 78 / FADM Date: 04/10/24 Loc: [place] Room:Type: [facility] Attending Dr: Christiano Wade DO Copies to: DO Mallika Leiva DO Ordering Provider: Christiano Wade DO Date of Service: 04/10/24 MM/MM surgical specimen RT: RT BREAST SPECIMENIN OR WITH RADIOACTIVE SEED Fluoroscopic assessment of right lumpectomy surgical specimen HISTORY: Right lumpectomy. Right breast cancer 1 Image The radiation seed identified within the surgical specimen. MM/MM surgical specimen RT IMPRESSION: Resection of the radiation seed. Impression dictated by: Moise Rossi M.D.04/10/2024 2:15 PM Dictation Location: [place] [address] Transcribed By: [facility] 04/10/24 1415 Dictated By: Moise Rossi DO 04/10/24 1414 Signed By: <Electronically signed by Moise Rossi DO in OV> 04/10/24 1415 us Christiano Wade DO IMG BI PROCEDURES Final R esult documented in this encounter Visit Diagnoses Not on filedocumented in this encounter Care Teams Facial Operator Relationship Specialty Start Date End Date Mallika Massey DO [address] [place] [address] PCP - Devoted 10/17/23 10/16/24 Mallika Massey DO [address] [place] [address] PCP - General Internal Medicine 10/28/23 Mallika Massey, DO [address] [place] [address] PCP - Devoted 01/15/25 Christina Trimble, SAMMIEM [address] [place] [address] Consulting Physician Podiatry 10/28/23 Christiano Wade, DO [address] [facility] [address] [place] [address] Consulting Physician General Surgery 04/08/24 Eleanor Galarza MD Consulting Physician Ophthalmology 02/20/24 documented as of this encounter
--- OUTSIDE RECORDS SUMMARY | 2025-03-18 14:17 | XMS_ITS | Encounter Summary ---
Author Organization [facility] Address [address] [place] [address] Care Team Providers Care Multimedia Teacher Name Role Phone Mallika Massey DO Unavailable [phone] Mallika Massey DO Primary Care Provider Christina Trimble DPM Unavailable [phone] Christiano Wade DO Unavailable [phone] Mallika Massye DO Unavailable [phone] Encounter Details Date Type Department Care Team (Late st Contact Info) Description 03/28/2024 External Result Encounter [facility] External Department Unsolicited Christiano Wade, DO [address] [place] [address] Social History Tobacco Use Types Packs/Day Years [...] IM [address] [place] [address] Mallika Massey, DO [address] [place] [address] documented as of this encounter Procedures Procedure Name Priority Date/Time Associated Diagnosis Comments ECG 12-LEAD 03/28/2024 2:04 PM EDT documented in this encounter Results * ECG 12 lead (03/28/2024 2:04 PM EDT) 03/28/2024 2:04 PM EDT [facility] - 03/29/2024 1:48 PM EDT [facility] Main [address] [address] Electrocardiograph Report Signed Patient: Bessie Espinosa MR#: [id number] 34 : 1945 Acct:[id number] Age/Sex: 78 / F ADM Date: 03/28/24 Loc: Room: Type: [facility] Attending Dr: Christiano Wade DO Ordering Provider: Christiano Wade DO Date of Service: 03/28/2410/09/1323 ECG/ECG 12 lead ECG: PST Copies to: Test Reason : Blood Pressure : / mmHG Vent. Rate : 084 BPM Atrial Rate : 084 BPM P-R Int : 174 ms QRS Dur : 088 ms QT Int : 388 ms P-R-T Axes : 056 -19 043 degrees QTc Int : 458 ms Normal sinus rhythm Low voltage QRS Nonspecific T wave abnormality Abnormal ECG When compared with ECG of 19-AUG-2022 02:06, fusion complexes are no longer present Confirmed by Cristi Capone ([id number]) on 03/29/2024 1:48:27 PM Referred By: PÉREZ Electronically Signed By:Cristi Capone Transcribed By: MUS Signed By Cristi Capone MD 03/29/24 1348 Procedure Note Shannon Capone MD - 03/29/2024 [facility] Main [place] [address] [place] [address] Electrocardiograph Report Signed Patient: Bessie Espinosa KMR#: [id number] [birth year] : 1945cct:[id number] Age/Sex: 78 / FADM Date: 03/28/24 Loc: [place] Room:Type: [facility] Attending Dr: Christiano Wade DO Ordering Provider: Christiano Wade DO Date of Service: 03/28/2410/09/1323 ECG/ECG 12 lead ECG: PST Copies to: Test Reason : Blood Pressure : / mmHG Vent. Rate : 084 BPM Atrial Rate : 084 BPM P-R Int : 174 ms QRS Dur : 088 ms QT Int : 388 ms P-R-T Axes : 056 -19 043 degrees QTc Int : 458 ms Normal sinus rhythm Low voltage QRS Nonspecific T wave abnormality Abnormal ECG When compared with ECG of 19-AUG-2022 02:06, fusion complexes are no longer present Confirmed by Cristi Capone ([id number]) on 03/29/2024 1:48:27 PM Referred By: PÉREZ Electronically Signed By:Cristi Capone Transcribed By: MUS Signed By Cristi Capone MD 03/29/24 4393 us Christiano Wade DO ECG ORDERABLES Final Res ult [address] [address], documented in this encounter Visit Diagnoses Not on filedocumented in this encounter Care Teams Multimedia Teacher Relationship Specialty Start Date End Date Mallika Massey DO [address] [place] [address] PCP - [facility] 10/17/23 10/16/24 Mallika Massey DO [address] [place] [address] PCP - General Internal Medicine 10/28/23 Mallika Massey DO [address] [place] [address] PCP - [facility] 01/15/25 Christina Trimble DPM [address] [place] [address] Consulting Physician Podiatry 10/28/23 Christiano Wade DO [address] [facility] [address] [place] [address] Consulting Physician General Surgery 04/08/24 Eleanor Galarza MD Consulting Physician Ophthalmology 02/20/24 documented as of this encounter
--- OUTSIDE RECORDS SUMMARY | 2025-03-18 14:17 | XMS_ITS | Encounter Summary ---
Author Organization [facility] Address [address] [place] [address] Care Team Providers Care Tailor Apprentice Name Role Phone Mallika Massey DO Unavailable [phone] Mallika Massey DO Primary Care Provider Christina Trimble DPM Unavailable [phone] Christiano Wade DO Unavailable [phone] Mallika Massey DO Unavailable [phone] Encounter Details Date Type Department Care Team (Late st Contact Info) Description 04/10/2024 External Result Encounter [facility] External Department Unsolicited Christiano Wade, DO [address] [place] [address] Social History Tobacco Use Types Packs/Day Years [...] IM [address] [place] [address] Mallika Massey, DO [address] [place] [address] documented as of this encounter Procedures Procedure Name Priority Date/Time Associated Diagnosis Comments BI MAMMOGRAM DIAGNOSTIC TOMOSYNTHESIS RIGHT 04/10/2024 9:58 AM EDT documented in this encounter Results * Right diagnostic mammogram with tomosynthesis (04/10/2024 9:58 AM EDT) Anatomical Region Laterality Modality Breast Right Mammography 04/10/2024 9:58 AM EDT Impressions 04/10/2024 3:26 PM EDT Successful radioactive seed localization. Biopsy marking clip outside the lesion 1.8 cm posterior. RESULT CODE: NL Impression dictated by: Moise Rossi M.D.04/10/2024 10:24 AM Dictation Location: [facility] Tech: Su Jean Baptiste Transcribed By: GRANT 04/10/24 1024 Dictated By: Moise Rossi DO 04/10/24 0958 Signed By: <Electronically signed by Moise Rossi DO in OV> 04/10/24 1024 Narrative 04/10/2024 3:26 PM EDT [facility] Main [address] [address] Ultrasound Report Signed Patient: Bessie Espinosa MR#: [id number] 34 : 1945 Acct:[id number] Age/Sex: 78 / F ADM Date: 04/10/24 Loc: [place] Room: Type: [facility] Attending Dr: Christiano Wade DO Ordering Provider: Christiano Wade DO Date of Service: 04/10/24 US/US breast needle loc RT: RT BREAST ULTRSOUND GUIDED RADIOACTIVE SEED LOC ([id number]) MM/MM diagnostic mammo RT w/CAD: POST RT U/S RADIOACTIVE SEED LOC Copies to: Christiano Wade DO Ultrasound radioactive seed localization Ultrasound guidance utilized 5 cm needle utilized. Local lidocaine administration and Sterile technique utilized. The needle advanced to the area of concern. . The needle tip positioned near the area of concern. Radiation seed was administered. Needle was removed. There is no complication. Mammographic imaging obtained post seed localization. The seed is identified within the lesion. The biopsy marking clip is outside the mass 1.8 cm posterior. Patient expressed no immediate complications and discharged in satisfactory condition. The dosage of the radiation seed is 0.263 mCi. US/US breast needle loc RT Procedure Note Radiology, Radiologist, - 04/10/2024 [facility] [place] [address] Ultrasound Report Signed Patient: Bessie Espinosa KMR#: [id number] 36 : 1945cct:[id number] Age/Sex: 78 / FADM Date: 04/10/24 Loc: [place] Room:Type: [facility] Attending Dr: Christiano Wade DO Ordering Provider: Christiano Wade DO Date of Service: 04/10/24 US/US breast needle loc RT: RT BREAST ULTRSOUNDGUIDED RADIOACTIVE SEED LOC ([id number]) MM/MM diagnostic mammo RT w/CAD: POST RT U/S RADIOACTIVESEED LOC Copies to: Christiano Wade DO Ultrasound radioactive seed localization Ultrasound guidance utilized 5 cm needle utilized. Local lidocaine administration and Sterile technique utilized. The needleadvanced to the area of concern. . The needle tip positioned near the area of concern. Radiation seed wasadministered. Needle was removed. There is no complication. Mammographic imaging obtained post seed localization. The seed isidentified within the lesion. The biopsy marking clip is outside the mass 1.8 cm posterior. Patient expressed no immediate complications and discharged insatisfactory condition. The dosage of the radiation seed is 0.263 mCi. US/US breast needle loc RT IMPRESSION: Successful radioactive seed localization. Biopsy marking clip outside thelesion 1.8 cm posterior. RESULT CODE: NL Impression dictated by: Moise Rossi M.D.04/10/2024 10:24 AM Dictation Location: [facility] Tech: Su Prado; Stacey Jean Baptiste Transcribed By: PWS 04/10/24 1024 Dictated By: Moise Rossi DO 04/10/24 0958 Signed By: <Electronically signed by Moise Rossi DO in OV> 04/10/24 1024 Christiano Wade DO IMG BI PROCEDURES Edited Result - Final documented in this encounter Visit Diagnoses Not on filedocumented in this encounter Care Teams Tailor Apprentice Relationship Specialty Start Date End Date Mallika Massey DO [address] [place] [address] PCP - [facility] 10/17/23 10/16/24 Mallika Massey DO [address] [place] [address] PCP - General Internal Medicine 10/28/23 Mallika Massey DO [address] [place] [address] PCP - [facility] 01/15/25 Christina Trimble DPM [address] [place] [address] Consulting Physician Podiatry 10/28/23 Christiano Wade DO [address] [place] [address] Consulting Physician General Surgery 04/08/24 Eleanor Galarza MD Consulting Physician Ophthalmology 02/20/24 documented as of this encounter
[2025-03-18 14:31] LABS: Basophils Absolute Auto 0.1 10^3/uL (0.0-0.1); Basophils Percent Auto 0.6 % (0.2-2.0); Eosinophils Absolute Auto 0.3 10^3/uL (0.0-0.7); Eosinophils Percent Auto 3.1 % (0.9-7.0); Hematocrit 36.7 % (36.0-48.0); Hemoglobin 11.1 g/dL (12.0-16.0); Immature Granulocytes Abs Auto 0.12 10^3/uL (0.00-0.03); Immature Granulocytes Pct Auto 1.2 % (0.0-0.5); Lymphocytes Absolute Auto 3.1 10^3/uL (1.2-3.8); Lymphocytes Percent Auto 30.9 % (20.5-60.0); Mean Corpuscular HGB Conc 30.2 g/dL (29.9-35.2); Mean Corpuscular Hemoglobin 20.2 pg (26.7-34.0); Mean Corpuscular Volume 66.7 fL (81.0-99.0); Mean Platelet Volume 11.1 fL (9.5-13.5); Monocytes Absolute Auto 0.5 10^3/uL (0.3-0.8); Monocytes Percent Auto 4.6 % (1.7-12.0); Neutrophils Absolute Auto 5.9 10^3/uL (1.4-6.5); Neutrophils Percent Auto 59.6 % (43.0-75.0); Platelet Count 273 10^3/uL (150-450); Red Cell Distribution Width 16.7 % (11.0-15.0); White Blood Count 9.9 10^3/uL (4.0-11.0)
== END 2025-03-18 14:11 | disposition home or self-care (01) ==
LOC: LAB 14:10
PROVIDERS: PCP Internal Medicine; Visit Provider Nurse Practitioner Family
DX: D64.9 Anemia, unspecified (principal); Z09 Encounter for follow-up examination after completed treatment for conditions other than malignant neoplasm
CPT/HCPCS: 36415; 85025

== ENCOUNTER 2025-04-10 12:12 | Outpatient (REF) | payer OTHER, SELFPAY ==
--- OUTSIDE RECORDS SUMMARY | 2025-04-10 12:17 | XMS_ITS | Clinical Summary ---
Author Organization [facility] Address [address] [place] [address] Care Team Providers Care Telemarketing Supervisor Name Role Phone Mallika Massey DO Primary Care Provider Christina Trimble DPM Unavailable [phone] Christiano Wade DO Unavailable [phone] Mallika Massey DO Unavailable [phone] Allergies Active Allergy Reactions Criticality Noted Date Comments Metformin Diarrhea Medium 03/15/2024 Morphine Hives,Other,Rash Low 05/31/2018 Pt reports blotchy skin Other Reaction(s): Rash Medications acetaminophen (Tylenol) 500 MG tablet Take 1-2 tablets PO QID PRN for pain 04/29/20 23 Active letrozole (Femara) 2.5 MG chemo tablet TAKE 1 TABLET BY MOUTH EVERY DAY STARTING AFTER RADIATION TREATMENT IS DONE 07/05/20 24 Active cholecalciferol (Vitamin D-3) 75 MCG (3000 UT) tablet Take 2,000 Units by mouth Daily Active Calcium Carb-Cholecalcif chilo (CALCIUM 1000 + D PO) Take 600 mg by mouth Daily Active [facility] Vitamin B12 1000 MCG tablet [...] DAY 90 tablet 3 03/15/20 25 Active empagliflozin (Jardiance) 10 MGIndications:Ty pe 2 diabetes mellitus with neurological manifestation (HCC) Take 1 tablet (10 mg) by mouth Daily 90 tablet 3 03/18/20 25 026 Active Multiple Vitamin (MULTIVITAMIN ADULT PO) Take 1 tablet by mouth Daily Active metoprolol succinate XL (Toprol-XL) 25 MG 24 hr tabletIndication s:Essential hypertension TAKE 1 TABLET BY MOUTH EVERY DAY 90 tablet 3 03/25/20 25 Active simvastatin (Zocor) 40 MG tabletIndication s:Hyperlipidemia , mixed TAKE 1 TABLET BY MOUTH AT BEDTIME 90 tablet 3 03/25/20 25 Active folic acid (Folvite) 1 MG tabletIndication s:Thalassemia, unspecified type Take 1 tablet (1 mg) by mouth Daily 90 tablet 3 03/15/20 24 025 Discontinued metoprolol succinate XL (Toprol-XL) 25 MG 24 hr tabletIndication s:Essential hypertension Take 1 tablet (25 mg) by mouth Daily 90 tablet 3 03/15/20 24 025 Discontinued simvastatin (Zocor) 40 MG tabletIndication s:Hyperlipidemia , mixed Take 1 tablet (40 mg) by mouth at bedtime 90 tablet 3 03/15/20 24 025 Discontinued empagliflozin (Jardiance) 10 MGIndications:Ty pe 2 diabetes mellitus with neurological manifestation (HCC) Take 1 tablet (10 mg) by mouth Daily 90 tablet 3 08/21/20 24 025 Discontinued(R eosami) Active Problems Problem Noted Date Diagnosed Date ACP (advance care planning) 03/21/2025 Overview (03/21/2025): 03/21/2025 Currently getting LW and DPOA updated Acute deep vein thrombosis ( DVT) of tibial vein of right lower extremity 02/21/2025 Overview (03/21/2025): Admitted 02/21/2025 after a fall. Found to have DVT and started on Xarelto. Will plan for treatment for at least 3 months, may consider longer depending on the status of her underlying breast cancer. History of right breast cancer 03/21/2024 Overview (08/21/2024): Malignant neoplasm of upper-inner quadrant of right breast in female, estrogen receptor positive She had lumpectomy with Dr Wade March 2024. Assessment & Plan (03/21/2025 5:32 PM EDT): She was supposed to F/U with Dr Wade 10/2024, but she did not keep that appt. 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 She is tolerating the current dose of Ozempic (and has lost 25#). Would recommend continuing current meds at current doses. Assessment & Plan (08/21/2024 2:25 PM EST): [...] (11/08/2023): Prescribed metoprolol XL Assessment & Plan (03/21/2025 5:37 PM EDT): Her BP is doing fine on current rx. Based on review of patient's medications and current medical status; continuation of medications most appropriate. Will continue to monitor Assessment & Plan (08/21/2024 3:32 PM EST): [...] choices, regular exercise and weight management) for half-way control of blood pressure. Limit salt. Follow [...] Overview (04/08/2024): Prescribed simvastatin Assessment & Plan (03/21/2025 5:37 PM EDT): -The importance of dietary modification, regular cardiovascular activity and compliance with any prescribed medication for buttermaker continuous churn management/control of lipids has been discussed. Since high cholesterol (especially LDL) is associated with an elevated risk of cardiovascular disease, which includes coronary artery disease, stroke and peripheral vascular disease, and has also been linked to diabetes and high blood pressure risks, by appropriately treating LDL, these risks can be reduced. Assessment & Plan (08/21/2024 3:33 PM EST): Will plan to have labs prior to next visit (Reminder created). -Reinforced importance of dietary modification, regular cardiovascular activity and compliance with any prescribed medication for half-way management/control of lipids. High cholesterol (especially LDL) [...] and compliance with any prescribed medication for half-way management/control of lipids. High cholesterol (especially LDL) [...] needs to resume rx Class 3 obesity Overview (03/21/2025): 08/2024 EJ=627#/BMI=49.13 03/2025 TK=983#/BMI=44.52 (she has lost ~25# since staring Ozempic for treatment of her DM). Assessment & Plan (03/21/2025 5:38 PM EDT): I would recommend focusing on lean protein (chicken breast, turkey breast, fish, or plant based proteins (chickpeas, beans, lentils, legumes)) paired with a fiber (vegetable or fruit). This will keep your insulin levels stable and keep you feeling full throughout the day. Always eat the protein first, followed by fiber, and finish with the starch/carbohydrate. General recommendations: - Healthy diet, routine exercise, good sleep hygiene and stress management are all important for weight loss, in addition to any medications that may be prescribed. - Adequate, good quality sleep is an important part of weight management. Generally recommend 7-8 hours of sleep nightly and routine sleep schedules when possible. Assessment & Plan (08/21/2024 3:34 PM EST): -Obesity is a term that means you have a body mass index (BMI) of 30 or higher. Obesity increases your risk of many conditions. Of major concern is that your risk of heart disease is increased. Of particular concern is that a [place] Heart Study analysis concluded that, after other [...] increased. Of particular concern is that a [place] Heart Study analysis concluded that, after other [...] increased. 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 with unspecified severity 03/21/2024 03/21/2025 Type 2 diabetes mellitus wit hout complication, without long-term current use of insulin 06/01/2022 04/08/2024 Overview (03/21/2024): Prescribed metformin 1000 mg BID Encounters Date Type Department Care Team Description 03/26/[address] [facility] [address] [place] [address] Katrina Ellis MA 03/23/2025 Refill [facility] IM [address] [place] [phone] Mallika Massey, Essential hypertension ; Hyperlipidemia, mixed 03/21/2025 1:00 PM EDT Office Visit [facility] IM [address] [place] [phone] Mallika Massey DO Medicare annual wellness visit, subsequent (Primary Dx); ACP (advance care planning); Type 2 diabetes mellitus with neurological manifestation (HCC); Mixed hyperlipidemia ; Essential hypertension ; Vitamin D deficiency; Postsurgical hypothyroidism ; Anemia, unspecified type; History of right breast cancer; Class 3 obesity; Acute deep vein thrombosis (DVT) of tibial vein of right lower extremity (HCC); BMI 40.0-44.9, adult ([facility]-H[facility]) 03/21/2025 Telephone [facility] IM [address] [place] [phone] Mallika Massey DO Regarding CBC result 03/21/2025 Travel 03/19/[address] [facility] [address] [place] [address] Katrina Ellis MA 03/19/2025 Bamboo flowsheet [facility] IM [address] [place] [phone] Mallika Massey DO 03/19/2025 Travel 03/18/2025 Refill [facility] IM [address] [place] [phone] Yonatan Coelho MA Type 2 diabetes mellitus with neurological manifestation (HCC) 03/15/2025 [facility] [address] [place] [address] Mallika Massey DO Thalassemia, unspecified type 03/04/[address] [facility] [address] [place] [phone] Katrina Ellis MA 02/27/2025 2:00 PM EDT Office Visit [facility] IM [address] [place] [phone] Lotus Kaur NP Hospital discharge follow-up (Primary Dx); Status post fall; Acute deep vein thrombosis (DVT) of tibial vein of right lower extremity (HCC); Acute cystitis with hematuria 02/27/2025 Travel 02/25/[address] [facility] [address] [place] [address] Yeimi Dahl LPN from Last 3 Months [...] Date Recorded Patient Health Questionnaire-2 Score 0 03/21/2025 Comments No Sex and Gender Information Value Date Recorded Sex Assigned at Not on file Legal Sex Female 6:53 PM EDT Gender Identity Not on file Sexual Orientation Not on file Last Filed Vital Signs Vital Sign Reading Time Taken Comments Blood Pressure 110/60 03/21/2025 1:20 PM EDT Pulse 69 03/21/2025 1:20 PM EDT Temperature - - Respiratory Rate 16 03/12/2025 1:53 PM EDT Oxygen Saturation 98% 03/21/2025 1:20 PM EDT Inhaled Oxygen Concentration - - Weight 107 kg (235 lb 9.6 oz) 03/21/2025 1:20 PM EDT Height 154.9 cm (5' 1 ) 08/21/2024 1:43 PM EST Body Mass Index 44.52 08/21/2024 1:43 PM EST Plan of Treatment Upcoming Encounters Date Type Department Care Team (Late st Contact Info) Description 09/19/2025 2:00 PM EST Office Visit [facility] [address] [place] [address] Mallika Massey, DO [address] [place] [address] Health Maintenance Due Date Last Done Comments Pneumococcal Vaccine: 65+ Ye ars (2 of 2 - PPSV23) 03/02/2019 01/05/2019 Medicare Annual Wellness (AWV) 08/03/2023 08/03/2022 Diabetes: Urine Protein Screening 10/28/2024 024, 06/08/2022 Influenza Vaccine (Season Ended) 2025 10/08/20 19 Diabetes: Hemoglobin A1C 06/21/2025 025, 08/21/2024, 03/15/2024, Additional history exists Diabetes: Retinopathy Screening 02/22/2026 4 Procedures Procedure Name Priority Date/Time Associated Diagnosis Comments POCT GLYCATED HEMOGLOBIN, TOTAL Routine 03/21/2025 1:29 PM EDT Type 2 diabetes mellitus with neurological manifestation (HCC) CBC (INCLUDES DIFF/PLT) Routine 03/18/2025 Hospital discharge follow-up MICROALBUMIN / CREATININE URINE RATIO Routine 10/28/2023 11:35 AM EST Essential hypertension from Last 3 Months or Most Recently Relevant to Health Maintenance Results * POCT Glycated hemoglobin, total (03/21/2025 1:29 PM EDT) Pathologist [facility] Hemoglobin A1C 6.3% Blood 03/21/2025 1:29 PM EDT Mallika Massey DO POINT OF CARE TEST ENTE R/EDIT ORDERABLES Final Result * CBC and differential (03/18/2025) Pathologist [facility] MCHC 30.2 EXTERNAL LAB MCH 20.2 EXTERNAL LAB MCV 66.7 EXTERNAL LAB RED BLOOD CELL COUNT 5.50 EXTERNAL LAB WHITE BLOOD CELL COUNT 9.9 EXTERNAL LAB HEMOGLOBIN 11.1 EXTERNAL LAB HEMATOCRIT 36.7 EXTERNAL LAB Blood Venous blood specimen / Unknown 03/18/2025 Lotus Kaur [facility]AX[facility]TER LAB BLOOD ORDERABLES Final R esult EXTERNAL LAB * Microalbumin / creatinine urine ratio (10/28/2023 11:35 AM EST) Pathologist [facility] CREATININE, RANDOM URINE 43 20 - 275 [...] Performing Organization Information Site ID: [id number] Name: [facility] Address: [address] [place] [address] Director: Travon Lawson MD Mallika Massey DO LAB URINE ORDERABLES Fi nal Result QUEST from Last 3 Months or Most Recently Relevant to Health Maintenance Insurance [employer] Advance Directives * Full Code (Latest Code Status on File) Date Activated Date Inactivated Comments 03/15/2024 10:07 AM Care Teams Telemarketing Supervisor Relationship Specialty Start Date End Date Mallika Massey DO [address] [place] [address] PCP - General Internal Medicine 10/28/23 Mallika Massey DO [address] [place] [address] PCP - [facility]oted 01/15/25 Christina Trimble DPM [address] [place] [address] Consulting Physician Podiatry 10/28/23 Christiano Wade DO [address] [facility] [address] [place] [address] Consulting Physician General Surgery 04/08/24 Eleanor Galarza MD Consulting Physician Ophthalmology 02/20/24
--- OUTSIDE RECORDS SUMMARY | 2025-04-10 12:17 | XMS_ITS | Encounter Summary ---
Author Organization [facility] Address [address] [place] [address] Care Team Providers Care Office Professional Name Role Phone Mallika Massey DO Unavailable [phone] Mallika Massey DO Primary Care Provider Christina Trimble DPM Unavailable [phone] Christiano Wade DO Unavailable [phone] Mallika Massey DO Unavailable [phone] Encounter Details Date Type Department Care Team (Late st Contact Info) Description 04/10/2024 External Result Encounter [facility] External Department Unsolicited Christiano Wade, DO [address] [place] [address] Social History Tobacco Use Types Packs/Day Years [...] IM [address] [place] [address] Mallika Massey, DO [address] [place] [address] documented as of this encounter Procedures Procedure [...] M.D.04/10/2024 10:24 AM Dictation Location: [facility] Tech: Su Prado; Stacey Jean Baptiste Transcribed By: GRANT 04/10/24 1024 Dictated By: Moise Rossi DO 04/10/24 0958 Signed By: <Electronically signed by Moise Rossi DO in OV> 04/10/24 1024 Narrative 04/10/2024 3:26 PM EDT [facility] Main [address] [address] Ultrasound Report Signed Patient: Bessie Espinosa MR#: [id number] 34 : 1945 Acct:[id number] Age/Sex: 78 / F ADM Date: 04/10/24 Loc: [place] Room: Type: [facility] Attending Dr: Christiano Wade DO Ordering Provider: Christiano Wade DO Date of Service: 04/10/24 US/US breast needle loc RT: RT BREAST ULTRSOUND GUIDED RADIOACTIVE SEED LOC ([id number]) MM/MM diagnostic mammo RT w/CAD: POST RT [...] RT Procedure Note Radiology, Radiologist, - 04/10/2024 [facility] [address] Ultrasound Report Signed Patient: Bessie Espinosa KMR#: [id number] 34 : 1945cct:[id number] Age/Sex: 78 / FADM Date: 04/10/24 Loc: [place] Room:Type: [facility] Attending Dr: Christiano Wade DO Ordering Provider: Christiano Wade DO Date of Service: 04/10/24 US/US breast needle loc RT: RT BREAST ULTRSOUNDGUIDED RADIOACTIVE SEED LOC ([id number]) MM/MM diagnostic mammo RT w/CAD: POST RT [...] M.D.04/10/2024 10:24 AM Dictation Location: [facility] Tech: Su Prado; Stacey Jean Baptiste Transcribed By: PWS 04/10/24 1024 Dictated By: Moise Rossi DO 04/10/24 0958 Signed By: <Electronically signed by Moise Rossi DO in OV> 04/10/24 1024 Christiano Wade DO IMG BI PROCEDURES Edited Result - Final documented in this encounter Visit Diagnoses Not on filedocumented in this encounter Care Teams Office Professional Relationship Specialty Start Date End Date Mallika Massey DO [address] [place] [address] PCP - Devoted 10/17/23 10/16/24 Mallika Massey DO [address] [place] [address] PCP - General Internal Medicine 10/28/23 Mallika Massey DO [address] [place] [address] PCP - Devoted 01/15/25 Christina Trimble DPM [address] [place] [address] Consulting Physician Podiatry 10/28/23 Christiano Wade DO [address] [place] [address] Consulting Physician General Surgery 04/08/24 Eleanor Galarza MD Consulting Physician Ophthalmology 02/20/24 documented as of this encounter
--- OUTSIDE RECORDS SUMMARY | 2025-04-10 12:17 | XMS_ITS | Encounter Summary ---
Author Organization [facility] Address [address] [place] [address] Care Team Providers Care Guest Service Supervisor Name Role Phone Mallika Massey DO Unavailable [phone] Mallika Massey DO Primary Care Provider Christina Trimble DPM Unavailable [phone] Christiano Wade DO Unavailable [phone] Mallika Massey DO Unavailable [phone] Encounter Details Date Type Department Care Team (Late st Contact Info) Description 03/06/2024 External Result Encounter [facility] External Department Unsolicited Christiano Wade, DO [address] [place] [address] Social History Tobacco Use Types Packs/Day Years [...] IM [address] [place] [address] Mallika Massey, [address] [place] [address] documented as of this encounter Procedures Procedure [...] Washburn M.D.03/06/2024 1:47 PM Dictation Location: [facility] Transcribed By: [facility] 03/06/24 1347 Dictated By: Donald Washburn II, MD 03/06/24 1343 Signed By: <Electronically signed by Donald Washburn II, MD in OV> 03/06/24 1347 Narrative 03/06/2024 1:50 PM EDT [facility] Main [address] [address] Mammography Report Signed with Chriss Patient: Bessie Espinosa MR#: [id number] 34 : 1945 Acct:[id number] Age/Sex: 78 / F ADM Date: 03/06/24 Loc: [facility] Room: Type: [facility] Attending Dr: Christiano Wade DO Copies to: DO Mallika Leiva DO Ordering Provider: Christiano Wade DO Date of Service: 03/06/24 US/US breast ndl core biopsy RT: . ([id number]) MM/MM post biopsy RT w/CAD: RT BX WITH CLIP ADDENDUM 1 Final pathology: Invasive lobular carcinoma Estrogen receptor: Positive Progesterone receptor: Positive HER-2: Pending Recommendation: Surgical consultation is recommended. Impression dictated by: Donald Washburn M.D.03/09/2024 8:03 AM Dictation Location: [place] [address] Addendum Dictated By: Donald Washburn II, MD [...] of the right breast was performed by blood bank technologist as well as myself. There is [...] 1:00 position were performed using a 12-gauge [employer] vacuum-assisted core biopsy needle under ultrasound guidance. [...] w/CAD Procedure Note Radiology, Radiologist, - 03/09/2024 [facility] Main [place] [address] [place] [address] Mammography Report Signed with Addenda Patient: Bessie Espinosa KMR#: [id number] [birth year] : [birth year]Acct:[id number] Age/Sex: 78 / FADM Date: 03/06/24 Loc: [facility] Room:Type: [facility] Attending Dr: Christiano Wade DO Copies to: DO Mallika Leiva DO Ordering Provider: Christiano Wade DO Date of Service: 03/06/24 US/US breast ndl core biopsy RT: . ([id number]) MM/MM post biopsy RT w/CAD: RT BX WITH CLIP ADDENDUM 1 Final pathology: Invasive lobular carcinoma Estrogen receptor: Positive Progesterone receptor: Positive HER-2: Pending Recommendation: Surgical consultation is recommended. Impression dictated by: Donald Washburn M.D.03/09/2024 8:03 AM Dictation Location: [place] [address] Addendum Dictated By: Donald Washburn II, MD [...] aspect of the right breast wasperformed by blood bank technologist as well as myself. There is [...] the 1:00 position wereperformed using a 12-gauge [employer] vacuum-assisted core biopsy needle under ultrasound guidance. [...] Washburn M.D.03/06/2024 1:47 PM Dictation Location: [facility] Transcribed By: [facility] 03/06/24 1347 Dictated By: Donald Washburn II, MD 03/06/24 1343 Signed By: <Electronically signed by Donald Washburn II, MD inOV> 03/06/24 1347 us Christiano Wade DO IMG US PROCEDURES Edited Result - Final documented in this encounter Visit Diagnoses Not on filedocumented in this encounter Care Teams Guest Service Supervisor Relationship Specialty Start Date End Date Mallika Massey DO [address] [place] [address] PCP - Devoted 10/17/23 10/16/24 Mallika Massey DO [address] [place] [address] PCP - General Internal Medicine 10/28/23 Mallika Massey DO [address] [place] [address] PCP - Devoted 01/15/25 Christina Trimble DPM [address] [place] [address] Consulting Physician Podiatry 10/28/23 Christiano Wade DO [address] [facility] [address] [place] [address] Consulting Physician General Surgery 04/08/24 Eleanor Galarza MD Consulting Physician Ophthalmology 02/20/24 documented as of this encounter
--- OUTSIDE RECORDS SUMMARY | 2025-04-10 12:17 | XMS_ITS | Encounter Summary ---
Author Organization [facility] Address [address] [place] [address] Care Team Providers Care Microbiology Lab Technician Name Role Phone Mallika Massey DO Unavailable [phone] Mallika Massey DO Primary Care Provider Christina Trimble DPM Unavailable [phone] Christiano Wade DO Unavailable [phone] Mallika Massey DO Unavailable [phone] Encounter Details Date Type Department Care Team (Late st Contact Info) Description 03/28/2024 External Result Encounter [facility] External Department Unsolicited Christiano Wade, DO [address] [place] [address] Social History Tobacco Use Types Packs/Day Years [...] IM [address] [place] [address] Mallika Massey, DO [address] [place] [address] documented as of this encounter Procedures Procedure Name Priority Date/Time Associated Diagnosis Comments ECG 12-LEAD 03/28/2024 2:04 PM EDT documented in this encounter Results * ECG 12 lead (03/28/2024 2:04 PM EDT) 03/28/2024 2:[address] [facility] - 03/29/2024 1:48 PM EDT [facility] Main [address] [address] Electrocardiograph Report Signed Patient: Bessie Espinosa MR#: [id number] 34 : 1945 Acct:[id number] Age/Sex: 78 / F ADM Date: 03/28/24 Loc: Room: Type: [facility] Attending Dr: Christiano Wade DO Ordering Provider: Christiano Wade DO Date of Service: 03/28/2410/09/1323 ECG/ECG 12 lead ECG: [facility] Copies to: Test Reason : Blood Pressure [...] no longer present Confirmed by Cristi Capone ([id number]) on 03/29/2024 1:48:27 PM Referred By: PÉREZ Electronically Signed By:Cristi Capone Transcribed By: MUS Signed By rCisti Capone MD 03/29/24 1341 Procedure Note Shannon Capone MD - 03/29/2024 [facility] Main [place] [address] [place] [address] Electrocardiograph Report Signed Patient: Bessie Espinosa KMR#: [id number] 34 : 1945cct:[id number] Age/Sex: 78 / FADM Date: 03/28/24 Loc: [place] Room:Type: [facility] Attending Dr: Christiano Wade DO Ordering Provider: [...] no longer present Confirmed by Cristi Capone ([id number]) on 03/29/2024 1:48:27 PM Referred By: PÉREZ Electronically Signed By:Cristi Capone Transcribed By: MUS Signed By Cristi Capone MD 03/29/24 5094 us Christiano Wade DO ECG ORDERABLES Final Res ult [address] [address], documented in this encounter Visit Diagnoses Not on filedocumented in this encounter Care Teams Microbiology Lab Technician Relationship Specialty Start Date End Date Mallika Massey DO [address] [place] [address] PCP - Devoted 10/17/23 10/16/24 Mallika Massey DO [address] [place] [address] PCP - General Internal Medicine 10/28/23 Mallika Massey DO [address] [place] [address] PCP - Devoted 01/15/25 Christina Trimble DPM [address] [place] [address] Consulting Physician Podiatry 10/28/23 Christiano Wade DO [address] [facility] [address] [place] [address] Consulting Physician General Surgery 04/08/24 Eleanor Galarza MD Consulting Physician Ophthalmology 02/20/24 documented as of this encounter
--- OUTSIDE RECORDS SUMMARY | 2025-04-10 12:17 | XMS_ITS | Clinical Summary ---
Author Organization [employer] [employer] Address [id number] [address] [place] [address] Care Team Providers Care Signaler Name Role Phone Whitney Osorio Joseph HANCOCK [...] Not on file Insurance MEDICARE Care Teams Signaler Relationship Specialty Start Date End Date Whitney Osorio DNP [address] [place] [address] PCP - General Nurse Practitioner 05/11/21
--- OUTSIDE RECORDS SUMMARY | 2025-04-10 12:17 | XMS_ITS | Encounter Summary ---
Author Organization [facility] Address [address] [place] [address] Care Team Providers Care Machinist 2Nd Shift Name Role Phone Mallika Massey DO Unavailable [phone] Mallika Massey DO Primary Care Provider Christina Trimble DPM Unavailable [phone] Christiano Wade DO Unavailable [phone] Mallika Massey DO Unavailable [phone] Encounter Details Date Type Department Care Team (Late st Contact Info) Description 03/15/2024 Orders Only [facility] IM [address] [place] [address] A, Unknown Practice [address] [place] [id number] Social History Tobacco Use Types Packs/Day [...] IM [address] [place] [address] Mallika Massey DO [address] [place] [address] documented as of this encounter Procedures Procedure Name Priority Date/Time Associated Diagnosis Comments DIABETES EYE EXAM Routine 03/15/2024 2:08 PM EDT documented in this encounter Results * Diabetes Eye Exam (03/15/2024 2:08 PM EDT) us Unknown Practice [facility] Final Resu lt documented in this encounter Visit Diagnoses Not on filedocumented in this encounter Care Teams Machinist 2Nd Shift Relationship Specialty Start Date End Date Mallika Massey DO [address] [place] [address] PCP - Devoted 10/17/23 10/16/24 Mallika Massey DO [address] [place] [address] PCP - General Internal Medicine 10/28/23 Mallika Massey DO [address] [place] [address] PCP - Devoted 01/15/25 Christina Trimble DPM [address] [facility] [address] [place] [address] Consulting Physician Podiatry 10/28/23 Christiano Wade DO [address] [place] [address] [address] [place] [address] Consulting Physician General Surgery 04/08/24 Eleanor Galarza MD Consulting Physician Ophthalmology 02/20/24 documented as of this encounter
--- OUTSIDE RECORDS SUMMARY | 2025-04-10 12:17 | XMS_ITS | Encounter Summary ---
Author Organization [facility] Address [address] [address] Care Team Providers Care Arch Cushion Press Operator Name Role Phone Mallika Massey DO Unavailable [phone] Mallika Massey DO Primary Care Provider Christina Trmible DPM Unavailable [phone] Christiano Wade DO Unavailable [phone] Mallika Massey DO Unavailable [phone] Encounter Details Date Type Department Care Team (Late st Contact Info) Description 04/10/2024 External Result Encounter [facility] External Department Unsolicited Christiano Wade, DO [address] [place] [address] Social History Tobacco Use Types Packs/Day Years [...] [address] [place] [address] Mallika Massey, [address] [place] [address] documented as of this encounter Procedures Procedure [...] Moise Rossi M.D.04/10/2024 2:15 PM Dictation Location: [facility] Transcribed By: [facility] 04/10/24 1415 Dictated By: Moise Rossi DO 04/10/24 1414 Signed By: <Electronically signed by Moise Rossi DO in OV> 04/10/24 1415 Narrative 04/10/2024 2:18 PM EDT [facility] Main [address] [address] Mammography Report Signed Patient: Bessie Espinosa MR#: [id number] 34 : 1945 Acct:[id number] Age/Sex: 78 / F ADM Date: 04/10/24 Loc: [place] Room: Type: [facility] Attending Dr: Christiano Wade DO Copies [...] RT Procedure Note Radiology, Radiologist, - 04/10/2024 [facility] Main [place] [address] [place] [address] Mammography Report Signed Patient: Bessie Espinosa KMR#: [id number] 34 : 1945cct:[id number] Age/Sex: 78 / FADM Date: 04/10/24 Loc: [place] Room:Type: [facility] Attending Dr: Christiano Wade DO Copies [...] Moise Rossi M.D.04/10/2024 2:15 PM Dictation Location: [place] [address] Transcribed By: [facility] 04/10/24 1415 Dictated By: Moise Rossi DO 04/10/24 1414 Signed By: <Electronically signed by Moise Rossi DO in OV> 04/10/24 1415 us Christiano Wade DO IMG BI PROCEDURES Final R esult documented in this encounter Visit Diagnoses Not on filedocumented in this encounter Care Teams Arch Cushion Press Operator Relationship Specialty Start Date End Date Mallika Massey DO [address] [place] [address] PCP - Devoted 10/17/23 10/16/24 Mallika Massey DO [address] [place] [address] PCP - General Internal Medicine 10/28/23 Mallika Massey, DO [address] [place] [address] PCP - Devoted 01/15/25 Christina Trimble, SAMMIEM [address] [place] [address] Consulting Physician Podiatry 10/28/23 Christiano Wade, DO [address] [facility] [address] [place] [address] Consulting Physician General Surgery 04/08/24 Eleanor Galarza MD Consulting Physician Ophthalmology 02/20/24 documented as of this encounter
[2025-04-10 13:01] LABS: Alanine Aminotransferase 18 U/L (14-59); Albumin Level 3.4 g/dL (3.4-5.0); Alkaline Phosphatase 68 U/L (46-116); Anion Gap 12.2; Aspartate Amino Transferase 18 U/L (15-37); BUN Creatinine Ratio 12.2; Bilirubin Total 1.2 mg/dL (0.2-1.0); Calcium 9.1 mg/dL (8.5-10.1); Carbon Dioxide 28.7 mmol/L (21.0-32.0); Chloride 102 mmol/L (98-107); Chol HDL Ratio 2.9; Cholesterol 120 mg/dL (<=200); Estimated GFR (African America >60 (>=60 mL/min/1.73m^2); Estimated GFR (Non-African Ame >60 (>=60 mL/min/1.73m^2); Globulin 3.3 g/dL; Glucose 107 mg/dL (74-106); HDL Cholesterol 41 mg/dL (40-60); Potassium 3.9 mmol/L (3.5-5.1); Sodium 139 mmol/L (136-145); Thyroid Stimulating Hormone 18.757 uIU/mL (0.358-3.740); Total Protein 6.7 g/dL (6.4-8.2); Triglycerides 180 mg/dL (<=150)
[2025-04-10 13:13] LABS: Free T4 0.94 ng/dL (0.76-1.46)
== END 2025-04-10 12:13 | disposition home or self-care (01) ==
LOC: LAB 12:12
PROVIDERS: PCP Internal Medicine; Visit Provider Internal Medicine
DX: E89.0 Postprocedural hypothyroidism (principal); E11.49 Type 2 diabetes mellitus with other diabetic neurological complication; E55.9 Vitamin D deficiency, unspecified
CPT/HCPCS: 36415; 80053; 80061; 82306; 84439; 84443